=== PATIENT | female | born 1935 | race Caucasian/White ===

== ENCOUNTER 2022-04-23 06:42 | Day surgery (SDC) | payer MEDICARE, BC ==
[2022-04-23] VITALS (8 sets, daily range): BP systolic 98–137; BP diastolic 68–81; PULSE 59–70; TEMP 97.7
[~2022-04-23] VITALS: Ht 154.9 cm; Wt 50.5 kg
[~2022-04-23 06:42] MED LIST: ADVIL200 MG PO; ALDACTONE 25MG25 M1 PO; CALCIUM 600 PLU1 TAB PO; CALCIUM WITH D1 CTB PO; CARDI-OMEGA1000 MG PO; CEFANEX250 MG PO; MULTIPLE VITAMI1 CAP PO; NORVASC 10MG10 MG PO; PRAVACHOL 40MG40 MG PO; PROTONIX 40MG T40 MG PO; TOPROL XL 25MG25 MG PO
[2022-04-23 07:31] LABS: BASO # 0.1 K/mm3 (0.0-0.2); BASO % 0.9 % (0.0-2.0); EOS # 0.3 K/mm3 (0.0-0.7); EOS % 5.5 % (0.0-4.0); GRAN # 3.5 K/mm3 (1.4-6.5); GRAN % 65.7 % (42.2-75.2); HEMATOCRIT 40.5 % (37.0-47.0); HEMOGLOBIN 13.5 g/dl (12.5-16.0); LYMPH # 0.7 K/mm3 (1.2-3.4); LYMPH % 12.5 % (20.0-51.0); MEAN CELL VOLUME 94 fl (80.0-100.0); MEAN CORPUSCULAR HEMOGLOBIN 31 pg (27-31); MEAN CORPUSCULAR HGB CONC 33 g/dl (33.0-37.0); MEAN PLATELET VOLUME 10.7 fl (7.4-10.4); MONO # 0.8 K/mm3 (0.1-0.6); MONO % 14.8 % (1.7-9.3); PLATELET COUNT 206 K/mm3 (130-400); RED BLOOD COUNT 4.33 M/mm3 (4.10-5.30); REDCELL DISTRIBUTION WIDTH-CV 12.6 % (11.5-14.5)
[2022-04-23 07:47] LABS: INR 1.1 (0.8-3.0); PROTHROMBIN TIME 12.2 SECONDS (9.7-12.8)
[2022-04-23 07:48] LABS: CREATININE, serum 1.06 mg/dL (0.57-1.11); POTASSIUM 4.2 mmol/L (3.5-4.5)
[2022-04-23] MEDS ORDERED: SYNTHROID0.05 MG/TA PO (07:53)
[2022-04-23] MEDS ORDERED: SYSTANE 0.4%-0.1 SOL OU (07:54)
[2022-04-23] MEDS ORDERED: EPA FISH OIL1 SGL PO (07:56)
[2022-04-23] MEDS ORDERED: TYLENOL PM EXTR1 TA1 PO (08:00)
[2022-04-23] MEDS ORDERED: TYLENOL 500MG500 MG PO (08:01)
--- NOTE | 2022-04-23 09:08 | NUR ---
Pt to procedure,report to Teo Radford.
--- NOTE | 2022-04-23 09:45 | NUR ---
See merge for all medication, assessment, intervention, and vital signs times.
[2022-04-23] MEDS ORDERED: CEPHALEXIN500 M1 PO (11:40)
--- NOTE | 2022-04-23 13:19 | NUR ---
Discharge instructions given to pt.Pt verbalizes understanding.INT removed,catheter tip intact.Pt escorted out via wheelchair by this nurse.
--- NOTE | 2022-04-23 13:37 | NUR ---
Pt escorted out via wheelchair by this nurse.
== END 2022-04-23 14:40 ==
LOC: COL.CAR 06:42
PROVIDERS: Internal Medicine Cardiovascular Disease
DX: Z45.010 Encounter for checking and testing of cardiac pacemaker pulse generator [battery] (principal); I44.2 Atrioventricular block, complete
CPT/HCPCS: C1785; J0690; J2250; J3010